=== PATIENT | male | born 2000 | race Two or more races ===

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

== ENCOUNTER 2019-04-23 21:40 | Emergency (ER) | payer BC, MEDICAID ==
[2019-04-23 22:28] VITALS: BP 126/74; PULSE 110
--- NOTE | 2019-04-23 22:52 | EDM.PDOC ---
ED HPI GENERAL MEDICAL PROBLEM - General Chief Complaint: Fever Stated Complaint: MEDICAL Time Seen by Provider: 04/23/19 22:45 Source of Information: Reports: Patient, Family, RN Notes Reviewed History Limitations: Reports: No Limitations - History of Present Illness INITIAL COMMENTS - FREE TEXT/NARRATIVE: 19-year-old male presents emergency department today complaint of sore throat and fever, he's been ill for the last 2 days denies any exposures no cough Throat Pain Score (Numeric/FACES): 7 - Related Data Allergies Allergy/AdvReac Type Severity Reaction Status Date / Time No Known Allergies Allergy Verified 04/23/19 22:28 Home Meds: Home Meds NK [No Known Home Meds] 04/23/19 [History] Past Medical History Respiratory History: Reports: Asthma Musculoskeletal History: Reports: Fracture Neurological History: Reports: Brain Injury Psychiatric History: Reports: ADHD, Depression Social & Family History - Tobacco Use Tobacco Use Comment: smokes about 4-5 day for the past 4-5 years - Caffeine Use Caffeine Use: Reports: Coffee - Recreational Drug Use Recreational Drug Use: Yes Recreational Drug Type: Reports: Marijuana/Hashish ED ROS ENT - Review of Systems Review Of Systems: See Below Constitutional: Reports: Fever HEENT: Reports: Throat Pain, Throat Swelling Respiratory: Reports: No Symptoms Cardiovascular: Reports: No Symptoms GI/Abdominal: Reports: No Symptoms ED EXAM, ENT - Physical Exam Exam: See Below Exam Limited By: No Limitations General Appearance: Alert, WD/WN, No Apparent Distress Mouth/Throat: Normal Inspection, Normal Gums, Normal Lips, Normal Teeth, Tonsillar Erythema, Tonsillar Exudates, Tonsillar Swelling Head: Atraumatic, Normocephalic Neck: Normal Inspection, Lymphadenopathy (R), Lymphadenopathy (L) Respiratory/Chest: No Respiratory Distress, Lungs Clear, Normal Breath Sounds, No Accessory Muscle Use, Chest Non-Tender Cardiovascular: Regular Rate, Rhythm, No Murmur GI/Abdominal: Soft, Non-Tender Course - Vital Signs Last Recorded V/S: Last Vital Signs Temp 102.7 F H 04/23/19 22:26 Pulse 110 H 04/23/19 22:26 Resp 16 04/23/19 22:26 BP 126/74 04/23/19 22:26 Pulse Ox 99 04/23/19 22:26 Departure - Departure Time of Disposition: 22:51 Disposition: Home, Self-Care 01 Condition: Fair Clinical Impression: Exudative pharyngitis - Discharge Information Instructions: Pharyngitis, [id number] Referrals: PCP,None [Primary Care Provider] - Forms: ED Department Discharge Additional Instructions: Take full course of antibiotics, use Tylenol or Motrin as needed to help control fevers, Please followup with your primary care provider in 3-5 days if not better, please call return to the emergency department with worsening of symptoms. - Assessment/Plan Plan: Assessment Acuity = acute Site and laterality = exudative pharyngitis Etiology = probable bacterial cause Manifestations = fever Location of injury = Home Lab values = none Plan Elected to treat empirically a azithromycin 5 day course follow-up with primary care 3-5 days if no improvement This note was dictated using [employer] voice recognition software please call with any questions on syntax or grammar.
== END 2019-04-23 22:57 | disposition home or self-care (01) ==
LOC: JP.ED 21:40
DX: J02.9 Acute pharyngitis, unspecified (principal)
CPT/HCPCS: 99282; 99283